=== PATIENT | male | born 2000 | race African-American/Black ===

== ENCOUNTER 2021-09-08 07:38 | Emergency (ER) | payer OTHER | END 2021-09-08 08:20 | disposition home or self-care (01) | LOC: CSHERS 07:38 | DX: R68.84 Jaw pain (principal); F17.210 Nicotine dependence, cigarettes, uncomplicated | CPT/HCPCS: 99283 ==

== ENCOUNTER 2021-12-03 19:01 | Emergency (ER) | payer OTHER | END 2021-12-03 20:25 | disposition home or self-care (01) | LOC: CSHERS 19:01 | DX: T17.298A Other foreign object in pharynx causing other injury, initial encounter (principal); F17.210 Nicotine dependence, cigarettes, uncomplicated | CPT/HCPCS: 70360 ==

== ENCOUNTER 2021-12-06 06:06 | Emergency (ER) | payer OTHER | END 2021-12-06 07:55 | disposition home or self-care (01) | LOC: CSHERS 06:06 | DX: K04.7 Periapical abscess without sinus (principal); F17.210 Nicotine dependence, cigarettes, uncomplicated | CPT/HCPCS: 99283 ==

== ENCOUNTER 2023-11-08 19:47 | Emergency (ER) | payer SELFPAY ==
[2023-11-09] MEDS ORDERED: Oxytocin 30 units/NS 500 ML 500 ML ONE (02:33)
== END 2023-11-08 20:39 | disposition home or self-care (01) ==
LOC: CSHERS 19:47
DX: Z00.00 Encounter for general adult medical examination without abnormal findings (principal)
CPT/HCPCS: 99282